=== PATIENT | male | born 1990 | race Caucasian/White ===

== ENCOUNTER 2019-02-13 04:59 | Emergency (ER) | payer SELFPAY ==
[2019-02-13] MEDS ORDERED: Lidocaine 1% 20 ML MDV INFILT ONE (05:00)
[2019-02-13] MEDS ORDERED: Diphtheria,Pertussis(Acell),Tetanus Vaccine 0.5 ML SDV IM ONE (05:30)
[2019-02-13] MEDS ORDERED: Iopamidol 755 Mg/ML 75 ML Bottle IV ONE (07:08)
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
[2019-02-13] MEDS ORDERED: Sodium Chloride 0.9% 1,000 ML IV ONE (09:08)
== END 2019-02-13 10:40 ==
LOC: FB.ED 04:59
DX: S06.6X9A Traumatic subarachnoid hemorrhage with loss of consciousness of unspecified duration, initial encounter (principal); S01.01XA Laceration without foreign body of scalp, initial encounter; S01.511A Laceration without foreign body of lip, initial encounter; S61.213A Laceration without foreign body of left middle finger without damage to nail, initial encounter; S40.019A Contusion of unspecified shoulder, initial encounter; S00.439A Contusion of unspecified ear, initial encounter; S30.0XXA Contusion of lower back and pelvis, initial encounter; F10.929 Alcohol use, unspecified with intoxication, unspecified; X58.XXXA Exposure to other specified factors, initial encounter
CPT/HCPCS: 12002; 12011; 36415; 70450; 71260; 72125; 73130; 74176; 80053; 80305; 81001; 85025; 85610; 90471; 90715; 96360; 99285; G0480; J2001; J7030; Q9967